=== PATIENT | male | born 1945 | race Caucasian/White ===

== ENCOUNTER → 2024-01-03 | Outpatient (CLI) | payer MEDICARE, OTHER ==
[~2024-01-03] MED LIST: FLOMAX 0.40.4 MG/CAP PO; Furosemide 40 MG/4 ML VIAL IV SCH; PERCOCET 325 MG1 TA2 PO; ZESTRIL2.5 MG PO
== END ==
LOC: COL.RAD 12:10
DX: N13.1 Hydronephrosis with ureteral stricture, not elsewhere classified (principal)
CPT/HCPCS: A9562; J1940